=== PATIENT | male | born 1985 | race African-American/Black ===

== ENCOUNTER 2022-12-17 15:16 | Emergency (ER) | payer OTHER, SELFPAY ==
[2022-12-17 15:41] VITALS: BP 112/63; PULSE 102; RESP 20; TEMP 37.7; O2SAT 99
--- NOTE | 2022-12-17 16:41 | ED.MALEGU ---
HPI - Male Genitourinary General Chief complaint: Urogenital-Male Stated complaint: Male Urogenital Time Seen by Provider: 12/17/22 16:20 Source: patient Mode of arrival: ambulatory Limitations: no limitations History of Present Illness HPI Narrative: Patient presents today complaining of hematuria and frequency x1 week. Patient states some dysuria upon onset of symptoms, but this has resolved. He also reports some chills that began yesterday. Denies urgency, abdominal pain, back or flank pain, nausea vomiting, URI symptoms, diarrhea. He denies any known concerns for sexually transmitted infections, however, would like to be tested for them today. Related Data Allergies Allergy/AdvReac Type Severity Reaction Status Date / Time No Known Allergies Allergy Verified 12/17/22 15:29 Review of Systems Review of Systems: CONSTITUTIONAL: Denies body aches, fever, or sweats.+ chills EYES: Denies visual changes, redness, or discharge. ENT: Denies rhinorrhea, congestion, sore throat, or otalgia. CARDIOVASCULAR: Denies chest pain, palpitations, or edema. RESPIRATORY: Denies cough or dyspnea. GASTROINTESTINAL: Denies abdominal pain, nausea, vomiting, or diarrhea. GENITOURINARY: + hematuria, dysuria, urinary frequency. Denies scrotal or testicular pain Or swelling. Denies urethral discharge SKIN: Denies rash, itching, or wounds. MUSCULOSKELETAL: Denies back pain, joint pain, or myalgia. NEUROLOGIC: Denies headache, numbness, tingling, or weakness. PSYCH: Denies depression or anxiety. [facility] Social History Social History Smoking status: Light tobacco smoker Alcohol intake: current Comments At time of signature, I have reviewed and agree with nursing past medical, surgical, social and family history unless otherwise noted. Please see nursing chart for further information. There is no relevant family history pertinent to the presenting complaint Exam Narrative: GENERAL: Well-appearing, well-nourished, and in no acute distress. HEAD: Normocephalic, atraumatic. EYES: EOMI. No redness or drainage. Conjunctivae normal. ENT: Mucous membranes pink and moist. NECK: Normal AROM. Supple. No lymphadenopathy. CHEST: No respiratory distress. Clear to auscultation. HEART: Regular rate and rhythm. No murmur appreciated. ABDOMEN: Soft, nontender, nondistended, normal active bowel sounds.-CVAT MUSCULOSKELETAL: No bony tenderness. EXTREMITIES: Normal range of motion. No edema. SKIN: Warm, dry, no rash. Capillary refill normal. Normal skin turgor. NEURO: No focal deficits. Alert and oriented x3. Gait steady. PSYCH: Normal affect. No signs of depression or anxiety. Course Course Level of Care: Express Care Visit Vital Signs Vital signs: Vital Signs Temperature 100 F H 12/17/22 15:41 Pulse Rate 102 H 12/17/22 15:41 Respiratory Rate 20 12/17/22 15:41 Blood Pressure 112/63 12/17/22 15:41 Pulse Oximetry 99 12/17/22 15:41 Oxygen Delivery Room Air 12/17/22 15:41 Temperature 100 F H 12/17/22 15:41 Pulse Rate 102 H 12/17/22 15:41 Respiratory Rate 20 12/17/22 15:41 Blood Pressure 112/63 12/17/22 15:41 Pulse Oximetry 99 12/17/22 15:41 Oxygen Delivery Room Air 12/17/22 15:41 Reviewed MDM - Male Genitourinary MDM Narrative Medical decision making narrative: Will treat patient based on urinalysis results for infection. Prescription for Keflex sent to pharmacy. If symptoms do not improve, he will need to follow-up with the PCP or urologist. He would like to be tested for gonorrhea, chlamydia, and Trichomonas today. He declines prophylactic treatment for same. Anticipatory guidance given. Differential Diagnosis Differential diagnosis: Likely urinary tract infection, urethritis and other (Bladder cancer, kidney stone, gonorrhea, chlamydia, Trichomonas) Lab Data Attestation: I reviewed the patient's lab results. Labs: Urine Gluco
--- NOTE | 2022-12-23 14:00 | ED.MALEGU ---
HPI - Male Genitourinary General Chief complaint: Urogenital-Male Stated complaint: Male Urogenital Time Seen by Provider: 12/17/22 16:20 Source: patient Mode of arrival: ambulatory Limitations: no limitations History of Present Illness HPI Narrative: Mr. Nicholas is a 37-year-old male patient presenting to the clinic today for follow-up treatment/medication after testing positive for gonorrhea. He declined to have prophylactic treatment at his initial visit on December 17, 2022. He was given Keflex to treat a possible urinary tract infection. He was notified yesterday that he tested positive for gonorrhea and a prescription had been sent to the [facility] in [facility]. Patient went to the pharmacy to obtain the medication and was told that the medication is no longer produced. The pharmacist called the clinic and I instructed the patient that he may come here for appropriate treatment. Related Data Allergies Allergy/AdvReac Type Severity Reaction Status Date / Time No Known Allergies Allergy Verified 12/17/22 15:29 Review of Systems Review of Systems: Pertinent positives per HPI. Patient denies any fever, chills, rash, headache, visual changes, dizziness, cough, runny nose, sore throat, shortness of breath, chest pain, palpitations, nausea, vomiting, diarrhea, constipation, abdominal pain. PMFSH Social History Social History Smoking status: Light tobacco smoker Alcohol intake: current Exam Narrative: General: Well-developed, well nourished, in no apparent distress. Head: Normocephalic, atraumatic. Cardio: Regular rate and rhythm, s1 and s2 normal, no murmur appreciated. Resp: Clear to auscultation bilaterally, no rhonchi, rales, wheezing or rubs. Abdomen: Soft, pliable, bowel sounds present in all quadrants, non-tender to palpation, no organomegly, no CVAT tenderness. : Deferred Course Vital Signs Vital signs: Vital Signs Temperature 37.7 C H 12/17/22 15:41 Pulse Rate 102 H 12/17/22 15:41 Respiratory Rate 20 12/17/22 15:41 Blood Pressure 112/63 12/17/22 15:41 Pulse Oximetry 99 12/17/22 15:41 Oxygen Delivery Room Air 12/17/22 15:41 Temperature 37.7 C H 12/17/22 15:41 Pulse Rate 102 H 12/17/22 15:41 Respiratory Rate 20 12/17/22 15:41 Blood Pressure 112/63 12/17/22 15:41 Pulse Oximetry 99 12/17/22 15:41 Oxygen Delivery Room Air 12/17/22 15:41 MDM - Male Genitourinary MDM Narrative Medical decision making narrative: At the time of visit patient is resting comfortably on the exam table. Rocephin 500 mg IM was given in the clinic to treat gonorrhea. Anticipatory guidance and supportive measures were discussed with the patient he voiced understanding of discharge instructions and agrees to treatment plan. Differential Diagnosis Differential diagnosis: Likely other (Sexually transmitted infections-gonorrhea) Lab Data Labs: Lab Results 12/17/22 12/17/22 Range/Units 16:02 16:05 C.trachomatis RNA (TMA) Not detected (Not Detected) N.gonorrhoeae RNA (TMA) Detected A (Not Detected) T. vaginalis Amp RNA Not detected (Not Detected) Discharge Plan Discharge Clinical Impression: Urinary tract infection Patient Disposition: Home, Self-Care Condition: Stable Instructions: Antibiotic Form, Urinary Tract Infection in Men (DC) Additional Instructions: Please take the Keflex as prescribed until gone. Drink plenty of water. You have been tested for gonorrhea, chlamydia, and Trichomonas. You will be notified by telephone of these results. If symptoms persist after her finished with the antibiotics, please follow-up with the PCP. Phone number for the [facility] Physician liaison to find a primary care physician is [phone]. Prescriptions: New cephalexin 500 mg capsule 500 mg PO Q6H 7 Days Qty: 28 0RF cefixime 400 mg capsule 800 mg PO
--- NOTE | 2022-12-23 14:06 | ED.MALEGU ---
HPI - Male Genitourinary General Chief complaint: Urogenital-Male Stated complaint: Male Urogenital Time Seen by Provider: 12/17/22 16:20 Source: patient Mode of arrival: ambulatory Limitations: no limitations History of Present Illness HPI Narrative: Mr. Nicholas is a 37-year-old male patient presenting to the clinic today for follow-up treatment/medication after testing positive for gonorrhea. He declined to have prophylactic treatment at his initial visit on December 17, 2022. He was given Keflex to treat a possible urinary tract infection. He was notified yesterday that he tested positive for gonorrhea and a prescription had been sent to the [facility] in [facility]. Patient went to the pharmacy to obtain the medication and was told that the medication is no longer produced. The pharmacist called the clinic and I instructed the patient that he may come here for appropriate treatment. Related Data Allergies Allergy/AdvReac Type Severity Reaction Status Date / Time No Known Allergies Allergy Verified 12/17/22 15:29 Review of Systems Review of Systems: Pertinent positives per HPI. Patient denies any fever, chills, rash, headache, visual changes, dizziness, cough, runny nose, sore throat, shortness of breath, chest pain, palpitations, nausea, vomiting, diarrhea, constipation, abdominal pain. PMFSH Social History Social History Smoking status: Light tobacco smoker Alcohol intake: current Exam Narrative: General: Well-developed, well nourished, in no apparent distress. Head: Normocephalic, atraumatic. Cardio: Regular rate and rhythm, s1 and s2 normal, no murmur appreciated. Resp: Clear to auscultation bilaterally, no rhonchi, rales, wheezing or rubs. Abdomen: Soft, pliable, bowel sounds present in all quadrants, non-tender to palpation, no organomegly, no CVAT tenderness. : Deferred Course Vital Signs Vital signs: Vital Signs Temperature 37.7 C H 12/17/22 15:41 Pulse Rate 102 H 12/17/22 15:41 Respiratory Rate 20 12/17/22 15:41 Blood Pressure 112/63 12/17/22 15:41 Pulse Oximetry 99 12/17/22 15:41 Oxygen Delivery Room Air 12/17/22 15:41 Temperature 37.7 C H 12/17/22 15:41 Pulse Rate 102 H 12/17/22 15:41 Respiratory Rate 20 12/17/22 15:41 Blood Pressure 112/63 12/17/22 15:41 Pulse Oximetry 99 12/17/22 15:41 Oxygen Delivery Room Air 12/17/22 15:41 MDM - Male Genitourinary MDM Narrative Medical decision making narrative: At the time of visit patient is resting comfortably on exam table. 500 mg of Rocephin IM was given in the clinic today. Anticipatory guidance and supportive measures were discussed with the patient he voiced understanding discharge instructions and agrees to treatment plan. Lab Data Labs: Lab Results 12/17/22 12/17/22 Range/Units 16:02 16:05 C.trachomatis RNA (TMA) Not detected (Not Detected) N.gonorrhoeae RNA (TMA) Detected A (Not Detected) T. vaginalis Amp RNA Not detected (Not Detected) Discharge Plan Discharge Clinical Impression: Acute gonorrhea of genitourinary tract Patient Disposition: Home, Self-Care Condition: Stable Instructions: Antibiotic Form, Gonorrhea (ED) Additional Instructions: Rocephin 500 mg IM given in the clinic today No vaginal, anal, or oral intercourse x1 week. Follow-up with your PCP as needed Prescriptions: New cephalexin 500 mg capsule 500 mg PO Q6H 7 Days Qty: 28 0RF cefixime 400 mg capsule 800 mg PO ONCE Qty: 2 0RF Follow-up/Referrals: PHYSICIAN,CHIEF HYDROELECTRIC STATION OPERATOR [Primary Care Provider] -
== END 2022-12-17 16:46 | disposition home or self-care (01) ==
PROVIDERS: Emergency Provider Nurse Practitioner
DX: N30.01 Acute cystitis with hematuria (principal); A54.9 Gonococcal infection, unspecified; F17.200 Nicotine dependence, unspecified, uncomplicated
CPT/HCPCS: 81003; 87086; 87088; 87491; 87591; 87661; 99213; G0463

== ENCOUNTER 2022-12-23 13:54 | Emergency (ER) | payer OTHER, SELFPAY ==
[2022-12-23 14:08] VITALS: BP 103/60; PULSE 80; RESP 18; TEMP 36.8; O2SAT 99
--- NOTE | 2022-12-23 14:16 | ED.MALEGU ---
HPI - Male Genitourinary General Chief complaint: Urogenital-Male Stated complaint: poss std exposure Time Seen by Provider: 12/23/22 13:59 Source: patient Mode of arrival: ambulatory Limitations: no limitations History of Present Illness HPI Narrative: Mr. Nicholas is a 37-year-old male patient presenting to the clinic today for follow-up treatment/medication after testing positive for gonorrhea. He declined to have prophylactic treatment at his initial visit on December 17, 2022. He was given Keflex to treat a possible urinary tract infection. He was notified yesterday that he tested positive for gonorrhea and a prescription had been sent to the [facility] in [facility]. Patient went to the pharmacy to obtain the medication and was told that the medication is no longer produced. The pharmacist called the clinic and I instructed the patient that he may come here for appropriate treatment. Related Data Allergies Allergy/AdvReac Type Severity Reaction Status Date / Time No Known Allergies Allergy Verified 12/23/22 14:12 Review of Systems Review of Systems: Pertinent positives per HPI. Patient denies any fever, chills, rash, headache, visual changes, dizziness, cough, runny nose, sore throat, shortness of breath, chest pain, palpitations, nausea, vomiting, diarrhea, constipation, abdominal pain, or any urinary issues. PMFSH Social History Social History Smoking status: Light tobacco smoker Alcohol intake: current Comments At the time of my signature, I reviewed and agree with the nursing past medical, surgical, social, and family history. There is no relevant family history pertinent to the patient complaint. Exam Narrative: General: Well-developed, well nourished, in no apparent distress. Head: Normocephalic, atraumatic. Cardio: Regular rate and rhythm, s1 and s2 normal, no murmur appreciated. Resp: Clear to auscultation bilaterally, no rhonchi, rales, wheezing or rubs. Abdomen: Soft, pliable, bowel sounds present in all quadrants, non-tender to palpation, no organomegly, no CVAT tenderness. : Deferred-denies any penile discharge Course Course Emergency Course: Portions of this record may have been created with voice recognition software. Level of Care: Express Care Visit Vital Signs Vital signs: Vital Signs Temperature 36.8 C 12/23/22 14:08 Pulse Rate 80 12/23/22 14:08 Respiratory Rate 18 12/23/22 14:08 Blood Pressure 103/60 12/23/22 14:08 Pulse Oximetry 99 12/23/22 14:08 Oxygen Delivery Room Air 12/23/22 14:08 Temperature 36.8 C 12/23/22 14:08 Pulse Rate 80 12/23/22 14:08 Respiratory Rate 18 12/23/22 14:08 Blood Pressure 103/60 12/23/22 14:08 Pulse Oximetry 99 12/23/22 14:08 Oxygen Delivery Room Air 12/23/22 14:08 Vital signs reviewed MDM - Male Genitourinary MDM Narrative Medical decision making narrative: At the time of visit patient is resting comfortably on the exam table. Rocephin 500 mg IM given in the clinic today. Anticipatory guidance and supportive measures were discussed with the patient he voiced understanding discharge instructions agrees to treatment plan. Differential Diagnosis Differential diagnosis: Likely other (Sexually transmitted infection-gonorrhea) Discharge Plan Discharge Clinical Impression: Acute gonorrhea of genitourinary tract Patient Disposition: Home, Self-Care Condition: Stable Instructions: Antibiotic Form, Gonorrhea (ED) Additional Instructions: Rocephin 500 mg IM given in the clinic today We have treated you for gonorrhea in the clinic today. Avoid any sexual activity- includes oral, anal, or vaginal intercourse x1 week. If symptoms persist or worsen after treatment recommend reevaluation with your PCP Prescriptions: No Action cephalexin 500 mg capsule 500 mg PO Q6H 7 Days Qty: 28 0RF cefixime 400 mg capsule
[2022-12-23] MEDS: cefTRIAXone 500 MG, LIDOCAINE HCL 1% LOCAL INJ 1 ML IM (14:23)
== END 2022-12-23 14:28 | disposition home or self-care (01) ==
PROVIDERS: Emergency Provider Nurse Practitioner Family
DX: A54.9 Gonococcal infection, unspecified (principal)
CPT/HCPCS: 96372; 99213; G0463; J0696